=== PATIENT | male | born 1945 | race Hispanic/Latino ===

== ENCOUNTER → 2021-02-08 | Outpatient (CLI) | payer OTHER, MEDICARE | END | disposition home or self-care (01) | LOC: RAH 14:38 | PROVIDERS: ATTEND Urology | DX: N28.1 Cyst of kidney, acquired (principal); N32.89 Other specified disorders of bladder; R31.29 Other microscopic hematuria | CPT/HCPCS: 76770 ==

== ENCOUNTER 2022-12-26 22:43 | Emergency (ER) | payer OTHER, MEDICARE ==
[~2022-12-26] VITALS: Ht 172.7 cm; Wt 68.0 kg
[2022-12-26 23:50] VITALS: BP 140/60; PULSE 76; RESP 18; O2SAT 99
[2022-12-26 23:53] LABS: SARS-CoV-2, RNA, NAAT POSITIVE SARS CoV-2 (NEGATIVE)
[2022-12-26 23:54] LABS: INFLUENZA TYPE A Negative For Type A (NEGATIVE); INFLUENZA TYPE B Negative For Type B (NEGATIVE)
== END 2022-12-27 00:15 | disposition home or self-care (01) ==
LOC: EDH 22:43
DX: U07.1 COVID-19 (principal); E11.9 Type 2 diabetes mellitus without complications; E78.00 Pure hypercholesterolemia, unspecified; I10 Essential (primary) hypertension
CPT/HCPCS: 99283; 87635; 87804 ×2; C9803